=== PATIENT | female | born 1965 | race Caucasian/White ===

== ENCOUNTER 2020-09-21 06:27 | Day surgery (SDC) | payer MEDICARE, OTHER ==
[~2020-09-21] VITALS: Ht 182.9 cm; Wt 103.1 kg
[~2020-09-21 06:27] MED LIST: ASPI-1444 PO; ATOR40TA28 PO; BUDESONIDE SUSP IH; IPRA3AMP24 IH; LISI-892 PO; MULT9LIQ6 PEG; SODIUM CHLORIDE 0.9% 1,000 ML ONE
[2020-09-21] MEDS ORDERED: SODIUM CHLORIDE 0.9% 1,000 ML IV ONE (07:00)
[2020-09-21] MEDS ORDERED: MIDAZOLAM HCL 2 MG/2 ML VIAL ONE (07:07)
[2020-09-21] MEDS ORDERED: FentaNYL CITRATE PF 100 MCG/2 ML VIAL ONE (07:07)
[2020-09-21 07:11] LABS: GLUCOMETER DEV NAME(LOC) SDS.; GLUCOSE,POINT OF CARE 99 MG/DL (70-110)
[2020-09-21] MEDS ORDERED: MethylPREDNISolone SOD SUCC 125 MG/2 ML VIAL IVP ONE (09:00)
[2020-09-21] MEDS ORDERED: MethylPREDNISolone SOD SUCC 125 MG/2 ML VIAL ONE (09:10)
[2020-09-21] MEDS ORDERED: LIDOCAINE 2% 30 ML JELLY ONE (18:17)
[2020-09-21] MEDS ORDERED: ALBUTEROL SULFATE 2.5 MG/0.5 ML NEB SOLUTION NEB ONE (18:17)
[2020-09-21] MEDS ORDERED: BENZOCAINE 20% 50 MCG/SPRAY 57 GM ONE (18:17)
[2020-09-21] MEDS ORDERED: LIDOCAINE 4% 50 ML SOLUTION ONE (18:17)
[2020-09-21] MEDS ORDERED: OXYGEN THERAPY IH SCH (20:00)
== END 2020-09-21 11:00 | disposition home or self-care (01) ==
LOC: SURGERY 06:27
PROVIDERS: ATTEND Internal Medicine Critical Care Medicine
DX: J38.4 Edema of larynx (principal); B37.0 Candidal stomatitis
CPT/HCPCS: 31623; 31624; 71045; 82962; 87070; 87101; 87206; 87220; 88108; 88184; 88185; 88312; J2250; J2930; J3010; J7030; 87015; J7613; Z7610